=== PATIENT | male | born 1960 | race American Indian/Alaskan Native ===

== ENCOUNTER 2017-07-20 07:40 | Outpatient (CLI) | payer BC ==
[2017-07-20 08:04] LABS: Basophils # (Auto) 0.1 K/mm3 (0.0-0.1); Basophils % (Auto) 0.6 % (0.0-1.8); Eosinophils # (Auto) 0.3 K/mm3 (0.0-0.4); Eosinophils % (Auto) 3.6 % (0.0-4.3); Hematocrit 41.4 % (35.5-45.6); Hemoglobin 13.9 gm/dl (11.8-15.2); Lymphocytes # (Auto) 3.7 K/mm3 (1.2-5.4); Lymphocytes % (Auto) 43.8 % (13.4-35.0); Mean Corpuscular HGB Conc 34 % (32-34); Mean Corpuscular Hemoglobin 29 pg (28-32); Mean Corpuscular Volume 86 fl (84-94); Monocytes # (Auto) 0.6 K/mm3 (0.0-0.8); Monocytes % (Auto) 7.4 % (0.0-7.3); Platelet Count 223 K/mm3 (140-440); Red Cell Distribution Width 12.4 % (13.2-15.2)
[2017-07-20 08:24] LABS: Alanine Aminotransferase 37 units/L (7-56); Albumin 4.1 g/dL (3.9-5); BUN/Creatinine Ratio 15; Blood Urea Nitrogen 17 mg/dL (9-20); Calcium 9.3 mg/dL (8.4-10.2); Chol/HDL Ratio 3.61 %; HDL Cholesterol 42 mg/dL (40-59); Hemolysis Index 5; LDL Cholesterol,Direct 92 mg/dL (50-130)
== END 2017-07-20 07:41 | disposition home or self-care (01) ==
LOC: LAB 07:40
PROVIDERS: ATTEND Internal Medicine
DX: E11.9 Type 2 diabetes mellitus without complications (principal); E78.5 Hyperlipidemia, unspecified; R97.20 Elevated prostate specific antigen [PSA]; R94.6 Abnormal results of thyroid function studies; R68.89 Other general symptoms and signs; R79.9 Abnormal finding of blood chemistry, unspecified
CPT/HCPCS: 36415; 80053; 80061; 83036; 84153; 84443; 85025

== ENCOUNTER 2017-09-03 16:01 | Outpatient (CLI) | payer BC ==
--- NOTE | 2017-09-03 19:56 | Magnetic Resonance Report ---
FINAL REPORT PROCEDURE: MR LE JOINT RT WO CON TECHNIQUE: Magnetic resonance imaging of the RIGHT knee was performed using standard pulse sequences. CPT 61076 HISTORY: UNSPECIFIED TEAR OF UNSPECIFIED MENLSCUS COMPARISON: No prior studies are available for comparison. FINDINGS: Bipartite patella present, normal variant. No acute bony abnormalities are identified. A large joint effusion is present. Large popliteal cyst visualized measuring 7.8 by 3.5 by 1.8 centimeters. Patellar retinaculum are intact. The anterior and the posterior cruciate ligaments are intact. The lateral collateral ligament and iliotibial band are intact. The medial collateral ligament appears intact although there mild edematous change along the medial surface suggesting grade 1 strain. Abnormal signal is visualized in the anterior aspect of the body of the lateral meniscus extending into the anterior horn. This further appears to extend to the inferior articular surface seen on images 9-11 series 6 T2 fat-suppressed sagittal image. Nondisplaced meniscal tear appears to be present. The posterior horn of the lateral meniscus is intact. The anterior horn of the medial meniscus appears intact as does the body. There is abnormal configuration of the posterior horn of the medial meniscus. On image 20 series 6 there is a linear band of decreased signal extending along the anterior surface of the posterior horn. This may represent a small meniscal fragment. There is mild chondromalacia in the medial lateral compartments of the knee with mild heterogeneous signal and mild surface irregularity. No exposed cortical bone is seen. There is heterogeneous signal seen in the articular cartilage of the central ridge of the patella without exposed cortical bone. Patellar tendon is intact. IMPRESSION: Large joint effusion is present as well as large popliteal cyst. Abnormal signal anterior horn lateral meniscus and posterior horn medial meniscus as described suggesting meniscal tears at each location as described above. Mild tricompartmental chondromalacia. No exposed cortical bone is seen.
== END 2017-09-03 16:02 | disposition home or self-care (01) ==
LOC: MRI 16:01
PROVIDERS: ATTEND Orthopaedic Surgery
DX: M71.21 Synovial cyst of popliteal space [Baker], right knee (principal); M94.261 Chondromalacia, right knee; M25.471 Effusion, right ankle
CPT/HCPCS: 73721

== ENCOUNTER 2018-01-14 16:56 | Outpatient (CLI) | payer BC ==
[2018-01-14 17:52] LABS: BUN/Creatinine Ratio 12; Blood Urea Nitrogen 11 mg/dL (9-20); Calcium 9.2 mg/dL (8.4-10.2); Hemolysis Index 12
== END 2018-01-14 16:57 | disposition home or self-care (01) ==
LOC: LAB 16:56
PROVIDERS: ATTEND Internal Medicine Nephrology
DX: R94.4 Abnormal results of kidney function studies (principal); E78.5 Hyperlipidemia, unspecified; E11.9 Type 2 diabetes mellitus without complications; E03.9 Hypothyroidism, unspecified; I10 Essential (primary) hypertension
CPT/HCPCS: 80048; 82570

== ENCOUNTER 2018-02-05 06:42 | Outpatient (CLI) | payer BC ==
[2018-02-05 12:25] LABS: Creatinine 24 Hour,Urine 3.2 (0.8-2.8); Creatinine,Urine 176.8 mg/dL (0.1-20.0)
== END 2018-02-05 06:43 | disposition home or self-care (01) ==
LOC: LAB 06:42
PROVIDERS: ATTEND Internal Medicine Nephrology
DX: R94.4 Abnormal results of kidney function studies (principal)
CPT/HCPCS: 82570

== ENCOUNTER 2019-06-13 09:33 | Outpatient (CLI) | payer BC ==
[2019-06-13 10:25] LABS: Basophils # (Auto) 0.1 K/mm3 (0.0-0.1); Basophils % (Auto) 0.6 % (0.0-1.8); Eosinophils # (Auto) 0.3 K/mm3 (0.0-0.4); Eosinophils % (Auto) 2.7 % (0.0-4.3); Hematocrit 42.6 % (35.5-45.6); Hemoglobin 14.5 gm/dl (11.8-15.2); Lymphocytes # (Auto) 3.7 K/mm3 (1.2-5.4); Lymphocytes % (Auto) 35.4 % (13.4-35.0); Mean Corpuscular HGB Conc 34 % (32-34); Mean Corpuscular Volume 85 fl (84-94); Monocytes # (Auto) 0.7 K/mm3 (0.0-0.8); Monocytes % (Auto) 6.4 % (0.0-7.3); Platelet Count 205 K/mm3 (140-440); Red Blood Count 4.99 M/mm3 (3.65-5.03)
[2019-06-13 10:48] LABS: Alanine Aminotransferase 44 units/L (7-56); Albumin 4.3 g/dL (3.9-5); BUN/Creatinine Ratio 9; Blood Urea Nitrogen 7 mg/dL (9-20); Calcium 9.1 mg/dL (8.4-10.2); Hemolysis Index 6; LDL Cholesterol,Direct 80 mg/dL (50-130)
[2019-06-13 11:01] LABS: Chol/HDL Ratio 4.68 %; HDL Cholesterol 35 mg/dL (40-59)
== END 2019-06-13 09:34 | disposition home or self-care (01) ==
LOC: LAB 09:33
PROVIDERS: ATTEND Internal Medicine
DX: Z13.29 Encounter for screening for other suspected endocrine disorder (principal); R68.89 Other general symptoms and signs; R79.89 Other specified abnormal findings of blood chemistry; E78.5 Hyperlipidemia, unspecified; R97.20 Elevated prostate specific antigen [PSA]
CPT/HCPCS: 36415; 80053; 80061; 83036; 84153; 84443; 85025

== ENCOUNTER 2020-09-21 15:38 | Outpatient (CLI) | payer BC ==
[2020-09-21 16:15] LABS: Basophils % (Auto) 0.5 % (0.0-1.8); Eosinophils # (Auto) 0.5 K/mm3 (0.0-0.4); Eosinophils % (Auto) 5.1 % (0.0-4.3); Hematocrit 45.3 % (35.5-45.6); Lymphocytes # (Auto) 4.5 K/mm3 (1.2-5.4); Lymphocytes % (Auto) 44.8 % (13.4-35.0); Mean Corpuscular HGB Conc 33 % (32-34); Mean Corpuscular Volume 88 fl (84-94); Monocytes # (Auto) 0.7 K/mm3 (0.0-0.8); Monocytes % (Auto) 6.6 % (0.0-7.3); Platelet Count 220 K/mm3 (140-440); Red Blood Count 5.17 M/mm3 (3.65-5.03); Red Cell Distribution Width 12.9 % (13.2-15.2)
[2020-09-21 16:34] LABS: Alanine Aminotransferase 18 units/L (7-56); Albumin 4.8 g/dL (3.9-5); BUN/Creatinine Ratio 11; Blood Urea Nitrogen 10 mg/dL (9-20); Calcium 8.8 mg/dL (8.4-10.2); Chol/HDL Ratio 4.04 %; HDL Cholesterol 44 mg/dL (40-59); Hemolysis Index 6; LDL Cholesterol,Direct 126 mg/dL (50-130)
[2020-09-21 17:39] LABS: Creatinine,Urine 161.4 mg/dL (0.1-20.0)
[2020-09-21 17:40] LABS: Microalbumin/Creatinine Ratio 15.4 ug/mg
== END 2020-09-21 15:39 | disposition home or self-care (01) ==
LOC: LAB 15:38
PROVIDERS: ATTEND Internal Medicine
DX: Z12.5 Encounter for screening for malignant neoplasm of prostate (principal); Z13.29 Encounter for screening for other suspected endocrine disorder; Z13.1 Encounter for screening for diabetes mellitus; E78.5 Hyperlipidemia, unspecified; R94.6 Abnormal results of thyroid function studies; R79.89 Other specified abnormal findings of blood chemistry; R68.89 Other general symptoms and signs
CPT/HCPCS: 36415; 80053; 80061; 82043; 83036; 84153; 84443; 85025

== ENCOUNTER 2022-01-17 16:08 | Outpatient (CLI) | payer BC ==
[2022-01-17 17:33] LABS: Alanine Aminotransferase 18 units/L (7-56); Albumin 4.9 g/dL (3.9-5); BUN/Creatinine Ratio 13; Blood Urea Nitrogen 10 mg/dL (9-20); Calcium 9.6 mg/dL (8.4-10.2); HDL Cholesterol 40 mg/dL (40-59); Hemolysis Index 6; LDL Cholesterol,Direct 125 mg/dL (50-130)
[2022-01-17 17:37] LABS: Basophils % (Auto) 0.5 % (0.0-1.8); Eosinophils # (Auto) 0.5 K/mm3 (0.0-0.4); Hematocrit 45.9 % (35.5-45.6); Hemoglobin 15.4 gm/dl (11.8-15.2); Lymphocytes # (Auto) 3.6 K/mm3 (1.2-5.4); Lymphocytes % (Auto) 38.2 % (13.4-35.0); Mean Corpuscular HGB Conc 34 % (32-34); Mean Corpuscular Volume 88 fl (84-94); Monocytes # (Auto) 0.6 K/mm3 (0.0-0.8); Monocytes % (Auto) 6.6 % (0.0-7.3); Platelet Count 228 K/mm3 (140-440); Red Blood Count 5.22 M/mm3 (3.65-5.03); Red Cell Distribution Width 12.3 % (13.2-15.2)
== END 2022-01-17 16:09 | disposition home or self-care (01) ==
LOC: LAB 16:08
PROVIDERS: ATTEND Internal Medicine
DX: Z13.29 Encounter for screening for other suspected endocrine disorder (principal); I10 Essential (primary) hypertension; E78.5 Hyperlipidemia, unspecified; E11.9 Type 2 diabetes mellitus without complications
CPT/HCPCS: 36415; 80053; 80061; 83036; 84153; 84403; 85025